=== PATIENT | female | born 1960 | race Caucasian/White ===

== ENCOUNTER 2024-10-19 08:33 | Day surgery (SDC) | payer OTHER ==
[2024-10-18 10:52] VITALS: BMI 29.6
[2024-10-19] MEDS ORDERED: Ondansetron ODT 4 MG TAB ONE (10:12)
[2024-10-19] MEDS ORDERED: Bupivacaine PF 0.5% 30 ML VIAL ONE (10:18)
[2024-10-19] MEDS ORDERED: fentaNYL 50 mcg/mL 1 mL Vial ONE ×3 (10:20→12:13)
[2024-10-19] MEDS ORDERED: PROPOFOL 20 ML ONE (10:20)
[2024-10-19] MEDS ORDERED: Ondansetron PF 4 MG/2 ML Vial ONE (10:20)
[2024-10-19] MEDS ORDERED: Ketorolac Tromethamine 30 MG (1 mL) VIAL ONE (10:20)
[2024-10-19] MEDS ORDERED: Dexamethasone 20 MG/5 ML VIAL ONE (10:20)
[2024-10-19] MEDS ORDERED: Dexmedetomidine 200 MCG/2 ML VIAL ONE (10:22)
[2024-10-19] MEDS ORDERED: CEFAZOLIN 2 GM VIAL ONE (10:26)
[2024-10-19] MEDS ORDERED: Midazolam HCl 2 mg/2 ml Vial ONE ×2 (10:28→10:34)
[2024-10-19] MEDS ORDERED: PHENYLEPHRINE-NS 100 MCG/ML 10 ML SYRINGE ONE (10:42)
[2024-10-19] MEDS ORDERED: HYDROmorphone 0.5 MG/0.5 ML SYRINGE ONE (12:13)
[2024-10-19] MEDS ORDERED: oxyCODONE 5 MG TAB ONE (12:53)
== END 2024-10-19 13:30 | disposition home or self-care (01) ==
LOC: CSHSDC 08:33
PROVIDERS: ATTEND Podiatrist Foot & Ankle Surgery
PROC: 2W5 Placement, Anatomical Regions, Removal (ICD-10-PCS; principal; 2024-10-19)
DX: T84.84XA Pain due to internal orthopedic prosthetic devices, implants and grafts, initial encounter (principal); M19.041 Primary osteoarthritis, right hand; K74.60 Unspecified cirrhosis of liver; F41.9 Anxiety disorder, unspecified; F32.9 Major depressive disorder, single episode, unspecified; M06.9 Rheumatoid arthritis, unspecified; Y83.9 Surgical procedure, unspecified as the cause of abnormal reaction of the patient, or of later complication, without mention of misadventure at the time of the procedure; Z88.8 Allergy status to other drugs, medicaments and biological substances; Z88.5 Allergy status to narcotic agent; Z79.899 Other long term (current) drug therapy; Z87.891 Personal history of nicotine dependence
CPT/HCPCS: 87070; 87076; 87077; 87186; 87205; J0665; J1100; J1171; J1885; J2250; J2405; J2704; J3010; Q0162